=== PATIENT | female | born 1995 | race Caucasian/White ===

== ENCOUNTER 2024-05-24 14:30 | Emergency (ER) | payer MEDICAID ==
[~2024-05-24] VITALS: Ht 162.6 cm; Wt 77.1 kg
[2024-05-24 14:32] VITALS: BP 115/82; PULSE 84; RESP 16; TEMP 36.9; O2SAT 100; O2SAT 99
[2024-05-24] MEDS ORDERED: MUPI1OIN4 TP (16:56)
[2024-05-24] MEDS ORDERED: IBUP-2029 MT (16:56)
[2024-05-24] MEDS ORDERED: CEPH500C2 MT (16:56)
[2024-05-24] MEDS ORDERED: SULF1TAB48 MT (16:56)
== END 2024-05-24 17:05 | disposition home or self-care (01) ==
LOC: ER 14:30
DX: L02.415 Cutaneous abscess of right lower limb (principal)
CPT/HCPCS: 10060; 99283